=== PATIENT | female | born 1985 | race Caucasian/White ===

== ENCOUNTER 2017-10-08 17:55 | Inpatient (IN) | payer MEDICAID ==
[~2017-10-08] VITALS: Ht 162.6 cm; Wt 103.2 kg
[~2017-10-08 17:55] MED LIST: IBUP600 PO; PERI8.6T PO; PREN0.01 PO
[2017-10-08 19:28] VITALS: BP 123/72; PULSE 84
[2017-10-08 19:29] VITALS: RESP 16
[2017-10-08] MEDS: LACTATED RINGER'S 1000 ML IV SCH (19:30)
[2017-10-08] MEDS ORDERED: OXYTOCIN 30 UNITS 500ML PREMIX IV ONE (19:30)
[2017-10-08] MEDS ORDERED: NS 1000 ML IV PRN (19:30)
[2017-10-08] MEDS ORDERED: MINERAL OIL 10 ML VIAL TOPICAL PRN (19:30)
[2017-10-08] MEDS ORDERED: NS 500 ML BOLUS IV PRN (19:30)
[2017-10-08] MEDS: LACTATED RINGER'S 1000 ML INJ 1,000 ML IV SCH ×2 (19:30→23:12)
[2017-10-08] MEDS ORDERED: CITRIC ACID-SODIUM CITRATE LIQ 30 ML UDC PO SCH (19:30)
[2017-10-08] MEDS ORDERED: LACTATED RINGER'S 1000 ML BOLUS IV PRN (19:30)
[2017-10-08] MEDS ORDERED: ZOLPIDEM TARTRATE 5 MG TAB PO PRN (19:30)
[2017-10-08] MEDS ORDERED: DINOPROSTONE 10 MG INSERT-LEAVE FOR 12 HOURS VAGINAL ONE (19:30)
[2017-10-08] MEDS ORDERED: LIDOCAINE HCL 1% 50 ML VIAL I-DERMAL PRN (19:30)
[2017-10-08] MEDS ORDERED: LIDOCAINE HCL 1% 50 ML VIAL INFIL PRN (19:30)
[2017-10-08 20:14] LABS: AUTOMATED NEUTROPHIL # 7.5 TH/MM3 (1.8-7.7); BASOPHIL % 0.3 % (0.0-2.0); EOSINOPHIL # 0.1 TH/MM3 (0-0.4); EOSINOPHIL % 0.6 % (0.0-4.0); HEMATOCRIT 35.5 % (35.0-46.0); HEMO FLAGS DIFF FINAL; LYMPH % 21.5 % (9.0-44.0); LYMPHOCYTE # 2.2 TH/MM3 (1.0-4.8); MEAN CELL VOLUME 90.8 FL (80.0-100.0); MEAN CORPUSCULAR HEMOGLOBIN 30.6 PG (27.0-34.0); MEAN CORPUSCULAR HGB CONC 33.7 % (32.0-36.0); NEUT % 71.6 % (16.0-70.0); PLATELET COUNT 236 TH/MM3 (150-450); RED BLOOD COUNT 3.91 MIL/MM3 (4.00-5.30); RED CELL DISTRIBUTION WIDTH 13.6 % (11.6-17.2); WHITE BLOOD COUNT 10.4 TH/MM3 (4.0-11.0)
[2017-10-08 20:17] LABS: BLOOD, URINE NEG (NEG); CALCIUM OXALATE CRYSTALS,URINE MANY /hpf; COMMENT (UR) CULT NOT INDICATED; CULTURE IF INDICATED CULT NOT INDICATED; GLUCOSE,URINE NEG (NEG); KETONE, URINE NEG (NEG); MUCUS URINE FEW /lpf (OCC); NITRITE,URINE NEG (NEG); SQUAMOUS EPITHELIAL CELL URINE 5 /hpf (0-5); URINE COLOR YELLOW (YELLW/STRAW)
[2017-10-09] VITALS (55 sets, daily range): BP systolic 82–145; BP diastolic 38–100; PULSE 73–139; RESP 16–20; TEMP 96.5–98.2; O2SAT 100
--- NOTE | 2017-10-09 06:39 | HHI.HP ---
HPI Chief Complaint term labor induction Date Seen: Oct 08, 2017 Time Seen: 23:00 Travel History International Travel<30 Days: No Contact w/Intl Traveler<30Days: No Known Affected Area: No History of Present Illness HPI 32 yo with EDC 10/12/17, 39w3d on admit, presents for term labor induction due to size greater than dates, suspected macrosomia, and history of dystocia with 8# child in past. has been complicated by obesity; weight on presentation to care 215, as of this week's visit pt gained 10# during . Early 1h GTT and repeat were both wnl but close to cut off, 122 then 135. Hgb A1c 5.3. Due to obesity pt has been followed with monthly growth ultrasounds, last on 35 weeks EFW 70%tile AARON 13. Pt c/o pelvic pressure and irregular cramps, denies contractions, LOF, VB. Endorses good FM. Pain 2/10 pelvic pressure. Weeks Gestation: 39 Para: 3 : 4 Last Menstrual Period: Jan 05, 2017 Miscarriage: 0 : 0 History Past Medical History Narrative Medical obesity seasonal allergies Obstetric History Obstetric History 05/17/05: 40 wk 8# male "Lex" 11/29/08: 40 wk 7#9oz male "Brigido" 09/22/15: 40 wk complicated by dystocia 8# female G4 = current Past Surgical History Narrative Surgical wisdom teeth 2004 Family History Family History: Negative Social History Alcohol Use: No Tobacco Use: No Substance Abuse: No Allergies-Medications (Allergen,Severity, Reaction): Coded Allergies: No Known Allergies (Verified , 05/17/05) Home Meds Active Scripts Sennosides-Docusate Sodium (Arianna-Colace 8.6-50 mg) 1 Tab Tab, 2 TAB PO Q12H Y for CONSTIPATION, #20 TAB 0 Refills Prov:Daphnie Orozco 09/24/15 Ibuprofen (Motrin 600 Mg Tab) 600 Mg Tab, 600 MG PO Q6H Y for CRAMPING, #30 TAB 0 Refills Prov:Daphnie Orozco 09/24/15 Reported Medications Multivit/Min/Fol Ac/Iron/Pren ( Vit ( Plus)) Tab, 1 TAB PO DAILY, 0 Refills 11/28/08 Review of Systems General / Constitutional: Weight Gain, No: Fever, Chills, Other Eyes: No: Diploplia, Blurred Vision, Visual changes, Pain, Photophobia HENT: No: Headaches, Vertigo, Lightheadedness Cardiovascular: No: Irregular Rhythm, Chest Pain or Discomfort, Palpitations, Tachycardia, Syncope, Varicosities, Edema, Cyanosis Respiratory: No: Cough, Short of Breath, Other Gastrointestinal: No: Nausea, Vomiting, Diarrhea Genitourinary: Pelvic Pain (pressure), No: Decreased Urinary Output, Oliguria Musculoskeletal: No: Limited ROM, Weakness, Cramping, Edema, Pain Skin: No Rash, No Itching, No Dryness, No Lumps, No Change in Pigmentation, No Change in Nails, No Alopecia, No Lesions Neurologic: No: Weakness, Dizziness, Syncope, Focal Abnormalities, Coordination Problem, Headache, Slurred Speech, Seizures Psychiatric: No: Depression, Suicidal Ideations, Homicidal Ideation Endocrine: No: Heat Intolerance, Cold Intolerance, Polydipsia, Polyuria, Other Physical Exam Vital Signs Date Time Temp Pulse Resp B/P (MAP) Pulse Ox O2 Delivery O2 Flow Rate FiO2 10/09/17 04:00 16 10/09/17 03:55 88 112/48 (69) 10/09/17 00:44 97.5 91 16 107/54 (71) 10/08/17 19:29 16 10/08/17 19:28 84 123/72 (89) Narrative GENERAL: Well-nourished, well-developed patient. Obese. SKIN: Warm and dry. HEAD: Normocephalic and atraumatic. EYES: No scleral icterus. No injection or drainage. ENT: No nasal drainage noted. Mucous membranes pink. Airway patent. NECK: Supple, trachea midline. No JVD. CARDIOVASCULAR: Regular rate and rhythm without murmurs, gallops, or rubs. RESPIRATORY: Breath sounds equal bilaterally. No accessory muscle use. BREASTS: defer. ABDOMEN/GI: Abdomen soft, non-tender, bowel sounds present, no rebound, no guarding Gravid to [39] weeks size Fundal Height: [41] GENITOURINARY: /-2 in office FHT's: Category: I EXTREMITIES: No cyanosis or edema. BACK: Nontender without obvious deformity. No CVA tenderness. NEUROLOGICAL: Awake and alert. Motor and sensory grossly within normal limits. Five out of 5 muscle strength in all muscle groups. Normal speech. Caprini VTE Risk Assessment Caprini VTE Risk Assessment: No/Low Risk (score <= 1) VTE Pharm Contraindication: High risk for bleeding Caprini Risk Assessment Model Point Value = 1 Point Value = 2 Point Value = 3 Point Value = 5 Age 41-60 Minor surgery BMI > 25 kg/m2 Swollen legs Varicose veins or History of unexplained or recurrent spontaneous Oral contraceptives or hormone replacement Sepsis (< 1 month) Serious lung disease, including pneumonia (< 1 month) Abnormal pulmonary function Acute myocardial infarction Congestive heart failure (< 1 month) History of inflammatory bowel disease Medical patient at bed rest Age 61-74 Arthroscopic surgery Major open surgery (> 45 min) Laparoscopic surgery (> 45 min) Malignancy Confined to bed (> 72 hours) Immobilizing plaster cast Central venous access Age >= 75 History of VTE Family history of VTE Factor V Leiden Prothrombin [id number] Lupus anticoagulant Anticardiolipin antibodies Elevated serum homocysteine Heparin-induced thrombocytopenia Other congenital or acquired thrombophilia Stroke (< 1 month) Elective arthroplasty Hip, pelvis, or leg fracture Acute spinal cord injury (< 1 month) Prophylaxis Regimen Total Risk Factor Score Risk Level Prophylaxis Regimen 0-1 Low Early ambulation 2 Moderate Order ONE of the following: *Sequential Compression Device (SCD) *Heparin 5000 units SQ BID 3-4 Higher Order ONE of the following medications: *Heparin 5000 units SQ TID *Enoxaparin/Lovenox 40 mg SQ daily (WT < 150 kg, CrCl > 30 mL/min) *Enoxaparin/Lovenox 30 mg SQ daily (WT < 150 kg, CrCl > 10-29 mL/min) *Enoxaparin/Lovenox 30 mg SQ BID (WT < 150 kg, CrCl > 30 mL/min) AND/OR *Sequential Compression Device (SCD) 5 or more Highest Order ONE of the following medications: *Heparin 5000 units SQ TID (Preferred with Epidurals) *Enoxaparin/Lovenox 40 mg SQ daily (WT < 150 kg, CrCl > 30 mL/min) *Enoxaparin/Lovenox 30 mg SQ daily (WT < 150 kg, CrCl > 10-29 mL/min) *Enoxaparin/Lovenox 30 mg SQ BID (WT < 150 kg, CrCl > 30 mL/min) AND *Sequential Compression Device (SCD) Data Data Vital Signs Reviewed: Yes Orders Orders Admit To Inpatient (10/08/17 ) Activity Oob Ad Ailyn (10/08/17 19:11) ^ Labor Induction (10/08/17 19:11) ^ Vaginal Insert (10/08/17 19:11) ^ Vaginal Lavage (10/08/17 19:11) Heart (10/08/17 19:11) Admit To Inpatient (10/08/17 ) Code Status (10/08/17 19:11) Vital Signs (Adult) .Per protocol (10/08/17 19:11) Activity Oob Ad Ailyn (10/08/17 19:11) Heart (10/08/17 19:11) Amnioinfusion (10/08/17 19:11) Urinary Catheter Management .ONCE (10/08/17 19:11) Complete Blood Count With Diff (10/08/17 19:11) Hold Clot (10/08/17 19:11) Abo/Rh Blood Type (10/08/17 19:11) Urinalysis - C+S If Indicated (10/08/17 19:11) Drug Screen, Random Urine (10/08/17 19:11) Resp Oxygen Non Rebreathe Mask (10/08/17 ) ^ Epidural / Intrathecal Infus (10/08/17 19:11) Specimen To Be Collected PRN (10/08/17 19:11) Specimen To Be Collected PRN (10/08/17 19:11) Dinoprostone Vag Insert (Cervidil Vag In (10/08/17 19:30) Lactated Ringer's 1000 Ml Inj (Lr 1000 M (10/08/17 19:30) Zolpidem (Ambien) (10/08/17 19:30) Lactated Ringer's 1000 Ml Inj (Lr 1000 M (10/08/17 19:30) Lactated Ringer's 1000 Ml Inj (Lr 1000 M (10/08/17 19:30) Sodium Chlorid 0.9% 500 Ml Inj (Ns 500 M (10/08/17 19:30) Sodium Chlor 0.9% 1000 Ml Inj (Ns 1000 M (10/08/17 19:30) Lidocaine 1% Inj (50 Ml) (Xylocaine 1% I (10/08/17 19:30) Citric Acid-Sodium Citrate Liq (Bicitra (10/08/17 19:30) Fentanyl Inj (Fentanyl Inj) (10/08/17 19:30) Fentanyl Inj (Fentanyl Inj) (10/08/17 19:30) Oxytocin 30 Units-500ml Premix (Pitocin (10/08/17 19:30) Lidocaine 1% Inj (50 Ml) (Xylocaine 1% I (10/08/17 19:30) Light Mineral Oil (Muri-Lube Oil) (10/08/17 19:30) Diet Regular Basic (10/08/17 Dinner) Influenza (Quad) Vaccine Inj (Flu (Quadr (10/09/17 10:00) Group B Strep: Negative Labs Laboratory Tests Test 10/08/17 18:55 White Blood Count 10.4 Red Blood Count 3.91 Hemoglobin 11.9 Hematocrit 35.5 Mean Corpuscular Volume 90.8 Mean Corpuscular Hemoglobin 30.6 Mean Corpuscular Hemoglobin Concent 33.7 Red Cell Distribution Width 13.6 Platelet Count 236 Mean Platelet Volume 9.3 Neutrophils (%) (Auto) 71.6 Lymphocytes (%) (Auto) 21.5 Monocytes (%) (Auto) 6.0 Eosinophils (%) (Auto) 0.6 Basophils (%) (Auto) 0.3 Neutrophils # (Auto) 7.5 Lymphocytes # (Auto) 2.2 Monocytes # (Auto) 0.6 Eosinophils # (Auto) 0.1 Basophils # (Auto) 0.0 CBC Comment DIFF FINAL Differential Comment Urine Color YELLOW Urine Turbidity HAZY Urine pH 6.0 Urine Specific [place] 1.031 Urine Protein 30 Urine Glucose (UA) NEG Urine Ketones NEG Urine Occult Blood NEG Urine Nitrite NEG Urine Bilirubin NEG Urine Urobilinogen 2.0 Urine Leukocyte Esterase NEG Urine RBC 1 Urine WBC 2 Urine Squamous Epithelial Cells 5 Urine Calcium Oxalate Crystals MANY Urine Mucus FEW Microscopic Urinalysis Comment CULT NOT INDICATED Urine Opiates Screen NEG Urine Barbiturates Screen NEG Urine Amphetamines Screen NEG Urine Benzodiazepines Screen NEG Urine Cocaine Screen NEG Urine Cannabinoids Screen NEG Assessment/Plan Problem List: (1) Labor and delivery indication for care or intervention ICD Codes: O75.9 - Complication of labor and delivery, unspecified Status: Acute (2) Obesity complicating childbirth ICD Codes: O99.214 - Obesity complicating childbirth Status: Acute Assessment and Plan 32 yo with EDC 10/12/17 admit for term labor induction due to maternal obesity, suspected macrosomia, h/o dystocia with 8# infant 1) IOL: for cervidil overnight, then evaluate for addt'l induction methods as indicated; r/b/a of IOL dw pt including failure, possibility of , AQA, pt desires IOL 2) GBS neg 3) obesity: aware; early 1h GTT and repeat wnl, A1c 5.3 4) status: vertex, Cat I tracing, EFW 70% on last office sono at 35 wks Discharge Planning routine, 2-3d PP anticipated Any Mccall MD Oct 09, 2017 06:39
[2017-10-09] MEDS ORDERED: OXYTOCIN 30 UNITS-500ML PREMIX 500 ML IV SCH ×2 (07:30→20:00)
--- NOTE | 2017-10-09 08:33 | HHI.PR ---
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 Patient feels well, having some cramping Assessment and plan #1 intrauterine : Category 1 tracing, - EFW approximately 8 pounds, cephalic, GBS negative #2 induction of labor: Cervidil removed at 8 PM, orders for Pitocin placed. #3 history of dystocia: Baby was 8 pounds, no maternal perineal trauma or neurological injury, discussed risk for recurrence and willl prepare for decision of this delivery as well. Enoc Nrei MD Oct 09, 2017 08:33
[2017-10-09] MEDS: LACTATED RINGER'S 1000 ML IV SCH ×2 (09:35→19:30)
[2017-10-09] MEDS ORDERED: INFLUENZA VIRUS VACCINE (QUADRIVALENT) 0.5 ML SYR IM ONE (10:00)
[2017-10-09] MEDS: LACTATED RINGER'S 1000 ML INJ 1,000 ML IV SCH ×2 (11:30→19:30)
[2017-10-09] MEDS ORDERED: fentaNYL 2MCG-BUPIV 0.125% INJ 100 ML ONE (14:57)
[2017-10-09] MEDS ORDERED: BUPIVACAINE HCL PF 0.25% 10 ML VIAL ONE (15:03)
[2017-10-09] MEDS ORDERED: ePHEDrine/NS 25 MG/5 ML SYR ONE (15:04)
[2017-10-09] MEDS ORDERED: MEASLES, MUMPS, RUBELLA VACCINE 0.5 ML VIAL SQ ONE (16:00)
[2017-10-09] MEDS ORDERED: DIPHTH/TETANUS/ACEL PERTUSSIS (BOOSTER) 0.5 ML VIAL/PFS IM ONE (16:00)
--- NOTE | 2017-10-09 16:00 | HHI.PR ---
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 Patient feels well, having some cramping O: Exam: By nursing at 1445 4 cm 50% effaced -2 station EFM: Baseline 140s, moderate variability, excised present, no decelerations Tocometry: contractions every 2-3 minutes Assessment and plan #1 intrauterine : Category 1 tracing, - Clincal EFW approximately 8 pounds, cephalic, GBS negative - EFW on 09/10/2017 2786 g, 69th percentile, anterior placenta, #2 induction of labor: s/p Cervidil this AM, pit at 7, s/p SROm @ 1015, clear, per nursing 4cm at recent check. Continue to titrate pit. #3 history of dystocia: Baby was 8 pounds, no maternal perineal trauma or neurological injury, discussed risk for recurrence and willl prepare for decision of this delivery as well. Enoc Neri MD Oct 09, 2017 16:00
[2017-10-09] MEDS ORDERED: IBUP-232 PO (19:52)
--- NOTE | 2017-10-09 19:54 | HHI.DCPOC ---
Discharge Care Plan Diagnosis: (1) (normal spontaneous vaginal delivery) Your Health Problems Are: Vaginal delivery Report Symptoms to Your Doctor -Temperature above 100.5 degrees -Redness, of incision or excessive or foul smelling drainage -Unusual pain or calf pain -Increased vaginal bleeding -Painful or difficulty urinating -Feelings of extreme sadness or anxiety after 2 weeks Goals to Promote Your Health * To prevent worsening of your condition and complications * To maintain your health at the optimal level Directions to Meet Your Goals Take your medications as prescribed Follow your dietary instruction Follow activity as directed Ensure plenty of rest for recovery Drink fluids for hydration Keep your appointments as scheduled Take your immunizations and boosters as scheduled If your symptoms worsen call your PCP, if no PCP go to Urgent Care Center or Emergency Room Smoking is Dangerous to Your Health. Avoid second hand smoke Call the 24-hour crisis hotline for domestic abuse at Enoc Neri MD Oct 09, 2017 19:54
[2017-10-09] MEDS ORDERED: WITCH HAZEL 50%/GLYCERIN 12.5% 40 PAD JAR TOPICAL PRN (20:00)
[2017-10-09] MEDS ORDERED: ZOLPIDEM TARTRATE 5 MG TAB PO PRN (20:00)
[2017-10-09] MEDS ORDERED: ACETAMINOPHEN 325 MG TAB PO PRN (20:00)
[2017-10-09] MEDS ORDERED: DOCUSATE SODIUM 50 MG/SENNA 8.6 MG TAB PO PRN (20:00)
[2017-10-09] MEDS ORDERED: ALUMINUM/MAGNESIUM/SIMETH 30 ML CUP PO PRN (20:00)
[2017-10-09] MEDS ORDERED: oxyCODONE/ACETAMINOPHEN 5 MG/325 MG TAB PO PRN (20:00)
[2017-10-09] MEDS ORDERED: IBUPROFEN 800 MG TAB PO PRN (20:00)
[2017-10-09] MEDS ORDERED: BENZOCAINE 20% TOPICAL SPRAY 60 ML CAN TOPICAL PRN (20:00)
[2017-10-09] MEDS ORDERED: ONDANSETRON ODT 4 MG TAB PO PRN (20:00)
[2017-10-09] MEDS ORDERED: SODIUM CHLORIDE 0.9% FLUSH 10 ML FLUSH IV FLUSH PRN (20:00)
--- NOTE | 2017-10-09 20:01 | PD.OB.DELI ---
Weeks gestation: 39 (39w4d) Gest age assessed date: Oct 09, 2017 Gest age assessed time: 19:00 Pt started active labor?: No Medical induction of labor?: Yes Artificial rupture of membrane: No (SROM @ 1015 on 10/09/17) Anesthesia: Epidural Episiotomy: None Vaginal Delivery: Normal, Spontaneous Presentation: Occiput anterior Nuchal Cord: None Delayed cord clamping (45 sec): Yes Shoulder Dystocia: Other (no dystocia) : Male, Single Delivery date: Oct 09, 2017 Delivery time: 19:29 One Minute : 8 Five Minute : 9 Weight: pending Placenta: Spontaneous delivery, Intact, 3 vessel cord Laceration: No lacerations Estimated blood loss: 100 Additional Information Called to the room as the patient found to be completely ready to push, the bed was broken down and prepared for delivery, was supported perineum the patient placed in the head was delivered and arrested to naturally, but gentle downward guidance a gentle upward guidance the anterior and posterior shoulder were delivered respectively without difficulty, the torso and lower extremities followed with ease. The had a spontaneous cry was placed on mom's abdomen, the cord was clamped and cut, the placenta was delivered intact with fundal massage after Pitocin was bolused for active third stage management, perineum was intact. Patient left in the room in stable condition Enoc Neri MD Oct 09, 2017 20:01
[2017-10-09] MEDS ORDERED: ePHEDrine/NS 25 MG/5 ML SYR IV PUSH PRN (20:30)
[2017-10-09] MEDS ORDERED: NO SYSTEM NARCOTICS PRN (20:30)
[2017-10-09] MEDS ORDERED: DO NOT ADMINISTER ANTICOAGULANTS PRN (20:30)
[2017-10-09] MEDS ORDERED: fentaNYL 2MCG-BUPIV 0.125% 100 ML EPIDURAL SCH (20:30)
[2017-10-09] MEDS ORDERED: OXYTOCIN 30 UNITS-500ML PREMIX 500 ML ONE (20:56)
[2017-10-09] MEDS ORDERED: SODIUM CHLORIDE 0.9% FLUSH 10 ML FLUSH IV FLUSH SCH (21:00)
--- NOTE | 2017-10-10 07:21 | HHI.OB ---
Subjective Post Day: 1 Remarks Patient did well, pain controlled, voiding spontaneously, ambulating without difficulty, lochia less than cycle. Objective Vitals/I&O Vital Signs Date Time Temp Pulse Resp B/P (MAP) Pulse Ox O2 Delivery O2 Flow Rate FiO2 10/09/17 19:45 18 10/09/17 19:30 92 119/53 (75) 10/09/17 19:14 20 10/09/17 19:13 98.0 10/09/17 19:00 93 126/59 (81) 10/09/17 18:45 99 125/65 (85) 10/09/17 18:30 96 123/97 (106) 10/09/17 18:15 86 136/66 (89) 10/09/17 17:46 76 109/48 (68) 10/09/17 17:30 94 117/64 (81) 10/09/17 17:23 139 92/64 (73) 10/09/17 17:21 78 141/45 (77) 10/09/17 17:16 85 125/44 (71) 10/09/17 17:00 87 120/61 (80) 10/09/17 16:45 88 116/57 (76) 10/09/17 16:30 93 120/60 (80) 10/09/17 16:15 98.0 20 10/09/17 16:15 87 129/61 (83) 10/09/17 16:00 83 128/65 (86) 10/09/17 15:50 78 125/59 (81) 10/09/17 15:46 81 120/52 (74) 10/09/17 15:42 80 112/64 (80) 10/09/17 15:40 81 96/53 (67) 10/09/17 15:36 85 106/91 (96) 10/09/17 15:35 100 10/09/17 15:35 83 10/09/17 15:34 78 128/59 (82) 10/09/17 15:31 80 133/57 (82) 10/09/17 15:30 100 10/09/17 15:30 84 10/09/17 15:28 83 130/69 (89) 10/09/17 15:27 73 111/62 (78) 10/09/17 15:26 85 82/45 (57) 10/09/17 15:25 99 10/09/17 15:23 124/100 (108) 10/09/17 15:22 86 92/41 (58) 10/09/17 15:20 85 10/09/17 15:20 85 139/48 (78) 10/09/17 15:16 85 136/64 (88) 10/09/17 15:15 84 10/09/17 15:01 84 140/67 (91) 10/09/17 14:46 83 145/71 (95) 10/09/17 14:35 81 139/72 (94) 10/09/17 14:32 87 91/38 (55) 10/09/17 14:15 87 136/67 (90) 10/09/17 14:00 86 118/65 (82) 10/09/17 13:50 97.5 10/09/17 13:50 96.5 18 10/09/17 13:46 83 126/92 (103) 10/09/17 13:43 79 132/66 (88) 10/09/17 11:56 98.2 20 10/09/17 11:54 76 121/64 (83) 10/09/17 09:37 20 10/09/17 09:37 98.2 10/09/17 09:34 81 137/63 (87) 10/09/17 09:08 92 120/60 (80) Objective Remarks GENERAL: Well-nourished, well-developed patient. CARDIOVASCULAR: Regular rate and rhythm without murmurs, gallops, or rubs. RESPIRATORY: Breath sounds equal bilaterally. No accessory muscle use. ABDOMEN/GI: Abdomen soft, non-tender. Fundus: Firm, non-tender at umbilicus. GENITOURINARY: Light to moderate bleeding. EXTREMITIES: No cyanosis or edema, non-tender, without signs of DVT. Medications and IVs Current Medications Medications (Trade) Dose Ordered Sig/Dinah Route Start Time Stop Time Status Last Admin Lactated Ringer's 1,000 ml @ 125 mls/hr Q8H IV 10/08/17 19:30 10/08/17 23:12 (Ambien) 5 mg HS PRN PO 10/08/17 19:30 10/08/17 23:12 Lactated Ringer's 1,000 ml @ 125 mls/hr Q8H IV 10/08/17 19:30 10/09/17 09:35 Lactated Ringer's 1,000 ml @ 3,000 mls/hr BOLUS PRN IV 10/08/17 19:30 Sodium Chloride 500 ml @ 1,000 mls/hr BOLUS PRN IV 10/08/17 19:30 Sodium Chloride 1,000 ml @ 100 mls/hr Q10H PRN IV 10/08/17 19:30 (Bicitra Liq) 30 ml MACHINE RUG CLEANER PO 10/08/17 19:30 10/11/17 19:29 Miscellaneous Information No systemic narcotics to be given except... UNSCH PRN .XX 10/09/17 20:30 10/10/17 20:29 Miscellaneous Information DO NOT ADMINISTER ANY ANTICOAGUL... UNSCH PRN .XX 10/09/17 20:30 10/10/17 20:29 Fentanyl/ Bupivacaine HCl 100 ml @ 0 mls/hr TITRATE EPIDURAL 10/09/17 20:30 10/09/17 20:36 (ePHEDrine/NS 25 MG/5 ML SYR) 10 mg UNSCH PRN IV PUSH 10/09/17 20:30 10/10/17 20:29 Assessment/Plan Problem List: (1) Labor and delivery indication for care or intervention ICD Codes: O75.9 - Complication of labor and delivery, unspecified Status: Acute (2) Obesity complicating childbirth ICD Codes: O99.214 - Obesity complicating childbirth Status: Acute Assessment and Plan 32 yo status post at 39 weeks and 4 days. 1) day #1: Meanwhile signs, anticipate discharge home in the next 24 hours. Discussed expectations, precautions, and need for follow-up. 2) : Male, desires circumcision, breast-feeding. Discharge Planning routine, 2-3d PP anticipated Enoc Neri MD Oct 10, 2017 07:21
[2017-10-10] MEDS ORDERED: MEASLES, MUMPS, RUBELLA VACCINE 0.5 ML VIAL SQ ONE (16:00)
[2017-10-10] MEDS ORDERED: DIPHTH/TETANUS/ACEL PERTUSSIS (BOOSTER) 0.5 ML VIAL/PFS IM ONE (16:00)
[2017-10-10] MEDS ORDERED: OXYTOCIN 30 UNITS-500ML PREMIX 500 ML IV SCH (16:45)
[2017-10-10] MEDS ORDERED: IBUPROFEN 600 MG TAB PO PRN (17:00)
[2017-10-10] MEDS ORDERED: WITCH HAZEL 50%/GLYCERIN 12.5% 40 PAD JAR TOPICAL PRN (17:00)
[2017-10-10] MEDS ORDERED: ALUMINUM/MAGNESIUM/SIMETH 30 ML CUP PO PRN (17:00)
[2017-10-10] MEDS ORDERED: DOCUSATE SODIUM 50 MG/SENNA 8.6 MG TAB PO PRN (17:00)
[2017-10-10] MEDS ORDERED: ZOLPIDEM TARTRATE 5 MG TAB PO PRN (17:00)
[2017-10-10] MEDS ORDERED: ACETAMINOPHEN 325 MG TAB PO PRN (17:00)
[2017-10-10] MEDS ORDERED: BENZOCAINE 20% TOPICAL SPRAY 60 ML CAN TOPICAL PRN (17:00)
[2017-10-10] MEDS ORDERED: ONDANSETRON ODT 4 MG TAB PO PRN (17:00)
[2017-10-10 20:05] VITALS: BP 137/63; PULSE 72; RESP 18; TEMP 97.7; O2SAT 99
--- NOTE | 2017-10-11 08:35 | HHI.OB ---
Subjective Post Day: 2 Remarks doing well, desires d/c home Objective Vitals/I&O Vital Signs Date Time Temp Pulse Resp B/P (MAP) Pulse Ox O2 Delivery O2 Flow Rate FiO2 10/10/17 20:05 97.7 72 18 137/63 (87) 99 Objective Remarks GENERAL: Well-nourished, well-developed patient. CARDIOVASCULAR: Regular rate and rhythm without murmurs, gallops, or rubs. RESPIRATORY: Breath sounds equal bilaterally. No accessory muscle use. ABDOMEN/GI: Abdomen soft, non-tender. Fundus: Firm, non-tender at umbilicus. GENITOURINARY: Light to moderate bleeding. EXTREMITIES: No cyanosis or edema, non-tender, without signs of DVT. Medications and IVs Current Medications Medications (Trade) Dose Ordered Sig/Dinah Route Start Time Stop Time Status Last Admin (Tylenol) 650 mg Q4H PRN PO 10/10/17 17:00 (Motrin) 600 mg Q6H PRN PO 10/10/17 17:00 10/10/17 21:39 (Americaine 20% Top Spr) 1 spray Q4H PRN TOPICAL 10/10/17 17:00 (Tucks Pads) 1 applic Q6H PRN TOPICAL 10/10/17 17:00 (Arianna-Colace) 2 tab Q12H PRN PO 10/10/17 17:00 (Ambien) 5 mg HS PRN PO 10/10/17 17:00 (Mag-Al Plus Susp Liq) 15 ml Q8H PRN PO 10/10/17 17:00 (Zofran Odt) 4 mg Q6H PRN PO 10/10/17 17:00 Assessment/Plan Problem List: (1) Labor and delivery indication for care or intervention ICD Codes: O75.9 - Complication of labor and delivery, unspecified Status: Acute (2) Obesity complicating childbirth ICD Codes: O99.214 - Obesity complicating childbirth Status: Acute Assessment and Plan 32 yo status post at 39 weeks and 4 days. 1) day #2: ready for d/c home. 2) PP: Male s/p circ this AM, breast-feeding. Discharge Planning routine, 2-3d PP anticipated Enoc Neri MD Oct 11, 2017 08:35
[2017-10-11 09:00] VITALS: BP 122/64; PULSE 79; RESP 18; TEMP 97.7
== END 2017-10-11 15:03 | disposition home or self-care (01) | DRG 775 ==
LOC: H2EB 17:55 → H1EA 10-09 22:09
PROVIDERS: ADMIT Obstetrics & Gynecology; ATTEND Obstetrics & Gynecology
PROC: 10E0XZZ Delivery of Products of Conception, External Approach (ICD-10-PCS; principal; 2017-10-09)
PROC: 3E0P7VZ Introduction of Hormone into Female Reproductive, Via Natural or Artificial Opening (ICD-10-PCS; 2017-10-09)
PROC: 00HU33Z Insertion of Infusion Device into Spinal Canal, Percutaneous Approach (ICD-10-PCS; 2017-10-09)
PROC: 3E0R3BZ Introduction of Anesthetic Agent into Spinal Canal, Percutaneous Approach (ICD-10-PCS; 2017-10-09)
DX: O99.214 Obesity complicating childbirth (principal); E66.9 Obesity, unspecified; O36.63X0 Maternal care for excessive fetal growth, third trimester, not applicable or unspecified; Z37.0 Single live birth; Z3A.39 39 weeks gestation of pregnancy
CPT/HCPCS: 59025; 80307; 81001; 85025; 86900; 86901; J2590; J7120